=== PATIENT | female | born 1930 | race Caucasian/White ===

== ENCOUNTER 2017-06-02 11:43 | Inpatient (IN) | payer OTHER, BC ==
[~2017-06-02] VITALS: Ht 162.6 cm; Wt 60.7 kg
[~2017-06-02 11:43] MED LIST: 8 HOUR PAIN RE650 M1 PO; ACCUPRIL40 MG PO; ALPHAGAN P100 DROP/2 BOTH EYES; AMLODIPINE BESYL5 MG PO; ANTIVERT25 MG PO; APRESOLINE50 MG PO; ASPIRIN81 M1 PO; ASPIRIN81 M2 PO; Ativan PO; BRIMONIDINE TAR10 ML BOTH EYES; BRIMONIDINE TART5 ML BOTH EYES; CELEBREX200 MG PO; CIPROFLOXACIN500 M1 PO; CLOBETASOL PROP60 GM TP; CLOTRIM ANTIFUN15 GM TP; CORMAX50 M1 TP; COZAAR100 MG PO; Coumadin,Jantoven PO; FLAGYL500 MG PO; GABAPENTIN100 MG PO; HYDRALAZINE HCL50 MG PO; HYDROCHLOROTHIA25 MG PO; HYDRODIURIL,O12.5 M2 PO; Hydrodiuril,Oretic,E PO; LIDODERM 5% P1 PATCH TP; LO-DOSE ASPIRIN81 M1 PO; LO-DOSE ASPIRIN81 M2 PO; LORAZEPAM0.5 MG PO; LOSARTAN POTAS100 MG PO; LOSARTAN POTASS25 MG PO; LUMIGAN2.5 M1 OP; MECLIZINE HCL25 MG PO; METFORMIN HCL500 MG PO; METOPROLOL TAR100 MG PO; NEURONTIN100 MG PO; PAIN RELIEF650 MG PO; SENOKOT S,PE1 TABLET PO; SPIRONOLACTONE25 MG PO; SYNTHROID50 MCG PO; TIMOLOL MALEATE15 M1 BOTH EYES; TOPROL XL50 MG PO; TRAMADOL HCL50 MG PO; TYLENOL325 M1 PO; ULTRACET1 TABLET PO; ULTRAM50 MG PO; Vicodin,Norco 5/325 PO; XALATAN2.5 ML BOTH EYES; Xalatan 0.005% Ophth BOTH EYES
[2017-06-02 12:33] LABS: EOSINOPHIL (%) 0.1 % (0-5); HEMATOCRIT 31.4 % (36.0-46.0); IMMATURE GRANULOCYTE (%) 0.4 % (0.0-0.7); IMMATURE GRANULOCYTE COUNT 0.1 K/uL; INSTRUMENT ABS NEUTROPHIL CT 12.1 K/uL; LYMPHOCYTE COUNT 0.7 K/uL (1.0-2.8); MCH 27.2 PG (29.0-34.0); MCHC 32.5 G/DL (30.0-36.0); MCV 83.7 FL (83-99); MEAN PLAT.VOLUME 9.5 uM^3 (9.5-12.4); MONOCYTE (%) 6.4 % (3-12); MONOCYTE COUNT 0.9 K/uL (0-0.8); NEUTROPHIL COUNT 12.1 K/uL (1.8-6.4); PLATELET COUNT 249 K/uL (156-360); RBC DIS.WIDTH-CV 14.9 % (11.8-14.6); RBC DIS.WIDTH-SD 45.5 % (39-53); RED BLOOD COUNT 3.75 M/uL (3.80-5.20); WHITE BLOOD COUNT 13.7 K/uL (4.1-10.2)
[2017-06-02 12:41] LABS: CHLORIDE 94 mEq/L (99-109); POTASSIUM 5.1 mEq/L (3.7-5.4); SODIUM 124 mEq/L (136-147)
[2017-06-02 12:43] LABS: GLUCOSE 218 mg/dL (70-99)
[2017-06-02 12:44] LABS: ANION GAP 9 MEQ/L (2-14)
[2017-06-02 12:47] LABS: GFR ESTIMATE (CALCULATED) 30 mL/min/; UREA NITROGEN (BUN) 37 mg/dL (9-23)
[2017-06-02 12:54] LABS: TROP-I INTERPRETATION NEGATIVE; TROPONIN-I < 0.01 ng/mL (0.0-0.30)
[2017-06-02 15:01] VITALS: BP 137/65
[2017-06-02] MEDS ORDERED: ULTRAM50 MG PO (16:16)
[2017-06-02] MEDS ORDERED: MECLIZINE HCL25 MG PO (16:18)
[2017-06-02 19:00] VITALS: BP 145/73
[2017-06-03 00:44] VITALS: BP 146/69
[2017-06-03 05:08] VITALS: BP 143/67
[2017-06-03 06:03] LABS: HEMATOCRIT 26.6 % (36.0-46.0); MCH 27.2 PG (29.0-34.0); MCHC 32.7 G/DL (30.0-36.0); MCV 83.1 FL (83-99); MEAN PLAT.VOLUME 8.9 uM^3 (9.5-12.4); PLATELET COUNT 210 K/uL (156-360); RBC DIS.WIDTH-CV 14.8 % (11.8-14.6); RBC DIS.WIDTH-SD 45.2 % (39-53); WHITE BLOOD COUNT 8.8 K/uL (4.1-10.2)
[2017-06-03 06:27] LABS: ALKALINE PHOSPHATASE 40 IU/L (3-129); ANION GAP 5 MEQ/L (2-14); CHLORIDE 99 MEQ/L (99-109); GFR ESTIMATE (CALCULATED) 56 mL/min/; POTASSIUM 4.8 MEQ/L (3.7-5.4); SAMPLE HEMOLYSIS CHECK 1; SAMPLE ICTERIC CHECK 0; SAMPLE LIPEMIA CHECK 0; SODIUM 128 MEQ/L (136-147); TOTAL BILIRUBIN 0.7 MG/DL (0.0-1.0); UREA NITROGEN (BUN) 29 mg/dL (9-23)
[2017-06-03 06:38] LABS: GLUCOSE 87 mg/dL (70-99)
[2017-06-03 07:32] LABS: ADD MIUA? YES; BILIRUBIN NEGATIVE; BLOOD NEGATIVE; COLOR YELLOW ((YELLOW)); GLUCOSE (STRIP) NEGATIVE; KETONES NEGATIVE; LEUKOCYTES LARGE; NITRITE NEGATIVE; PROTEIN (STRIP) NEGATIVE; UROBILINOGEN 0.2 MG/DL (0.2-1.0)
[2017-06-03 07:55] LABS: BACTERIA RARE /HPF; EPITHELIAL CELLS 1+ /HPF; HYALINE CASTS 0-5 /LPF; MUCUS TRACE /LPF; UCUL ADDED? NO
[2017-06-03 09:21] VITALS: BP 174/74
[2017-06-03 11:58] VITALS: BP 152/69
[2017-06-03] MEDS ORDERED: ACETAMINOPHEN325 M3 PO (12:04)
[2017-06-03 12:33] LABS: POINT-OF-CARE METER ID UU14162513
[2017-06-03 16:37] VITALS: BP 180/80
[2017-06-03 17:40] LABS: POINT-OF-CARE METER ID UU13113831
[2017-06-03 19:40] VITALS: BP 180/76
[2017-06-03 22:26] LABS: POINT-OF-CARE METER ID UU13113831
[2017-06-03 22:31] LABS: POINT-OF-CARE METER ID UU14162513
[2017-06-04 00:22] VITALS: BP 181/87
[2017-06-04 04:38] VITALS: BP 165/81
[2017-06-04 05:45] LABS: EOSINOPHIL (%) 3.1 % (0-5); EOSINOPHIL COUNT 0.2 K/uL (0-0.3); IMMATURE GRANULOCYTE (%) 0.6 % (0.0-0.7); INSTRUMENT ABS NEUTROPHIL CT 4.2 K/uL; LYMPHOCYTE COUNT 1.1 K/uL (1.0-2.8); MCH 27.5 PG (29.0-34.0); MCHC 32.7 G/DL (30.0-36.0); MCV 84.1 FL (83-99); MEAN PLAT.VOLUME 9.5 uM^3 (9.5-12.4); MONOCYTE (%) 10.2 % (3-12); MONOCYTE COUNT 0.6 K/uL (0-0.8); NEUTROPHIL (%) 68.6 % (45-76); NEUTROPHIL COUNT 4.2 K/uL (1.8-6.4); PLATELET COUNT 215 K/uL (156-360); RBC DIS.WIDTH-CV 15.2 % (11.8-14.6); RBC DIS.WIDTH-SD 46.8 % (39-53); RED BLOOD COUNT 3.09 M/uL (3.80-5.20); WHITE BLOOD COUNT 6.2 K/uL (4.1-10.2)
[2017-06-04 06:08] LABS: ANION GAP 7 MEQ/L (2-14); CHLORIDE 104 MEQ/L (99-109); GFR ESTIMATE (CALCULATED) > 59 mL/min/; GLUCOSE 81 mg/dL (70-99); MAGNESIUM 1.5 mg/dl (1.3-2.7); POTASSIUM 4.3 MEQ/L (3.7-5.4); SAMPLE HEMOLYSIS CHECK 0; SAMPLE ICTERIC CHECK 0; SAMPLE LIPEMIA CHECK 0; SODIUM 133 MEQ/L (136-147); UREA NITROGEN (BUN) 21 mg/dL (9-23); URIC ACID 4.4 mg/dL (3.1-9.2)
[2017-06-04 08:05] LABS: POINT-OF-CARE METER ID UU14162513
[2017-06-04] MEDS ORDERED: APRESOLINE100 MG PO (12:06)
[2017-06-04] MEDS ORDERED: CATAPRES0.2 MG PO (12:09)
[2017-06-04] MEDS ORDERED: FUROSEMIDE20 MG PO (12:10)
[2017-06-04 12:23] VITALS: BP 187/72
== END 2017-06-04 14:35 | disposition home health service (06) | DRG 683 ==
LOC: EME 11:43 → 5WEST 13:39 → EDOF 13:39 → 5WEST 14:50
PROVIDERS: Emergency Medicine; Internal Medicine; Internal Medicine Nephrology
DX: N17.9 Acute kidney failure, unspecified (principal); E86.0 Dehydration; E87.1 Hypo-osmolality and hyponatremia; T46.4X5A Adverse effect of angiotensin-converting-enzyme inhibitors, initial encounter; T50.0X5A Adverse effect of mineralocorticoids and their antagonists, initial encounter; I16.0 Hypertensive urgency; I10 Essential (primary) hypertension; E11.9 Type 2 diabetes mellitus without complications; E03.9 Hypothyroidism, unspecified; F41.9 Anxiety disorder, unspecified; S20.219A Contusion of unspecified front wall of thorax, initial encounter; W19.XXXA Unspecified fall, initial encounter; Y92.009 Unspecified place in unspecified non-institutional (private) residence as the place of occurrence of the external cause; Z96.643 Presence of artificial hip joint, bilateral; Z85.828 Personal history of other malignant neoplasm of skin; Z79.82 Long term (current) use of aspirin
CPT/HCPCS: 70450; 71010; 76770; 80048; 80053; 81003; 82948; 83735; 83935; 84100; 84300; 84439; 84443; 84484; 84550; 85025; 85027; 93005; 99281; 99284; G0378; G8978 GP CI; G8979 GP CH; G8987 GO CI; G8988 GO CH; J1650; J7030

== ENCOUNTER 2017-09-19 15:29 | Emergency (ER) | payer OTHER, BC ==
[~2017-09-19] VITALS: Ht 167.6 cm; Wt 55.2 kg
[~2017-09-19 15:29] MED LIST changes: +ACETAMINOPHEN325 M3 PO; +APRESOLINE100 MG PO; +CATAPRES0.2 MG PO; +FUROSEMIDE20 MG PO
[2017-09-19 15:52] LABS: HEMATOCRIT 33.5 % (36.0-46.0); MCHC 32.8 G/DL (30.0-36.0); MCV 82.3 FL (83-99); PLATELET COUNT 289 K/uL (156-360); RBC DIS.WIDTH-CV 14.5 % (11.8-14.6); RBC DIS.WIDTH-SD 43.1 % (39-53); RED BLOOD COUNT 4.07 M/uL (3.80-5.20); WHITE BLOOD COUNT 8.3 K/uL (4.1-10.2)
[2017-09-19 16:03] LABS: CHLORIDE 92 mEq/L (99-109); POTASSIUM 4.6 mEq/L (3.7-5.4); SODIUM 127 mEq/L (136-147)
[2017-09-19 16:04] LABS: GLUCOSE 111 mg/dL (70-99)
[2017-09-19 16:06] LABS: ANION GAP 12 MEQ/L (2-14)
[2017-09-19 16:08] LABS: GFR ESTIMATE (CALCULATED) 50 mL/min/
[2017-09-19 16:09] LABS: UREA NITROGEN (BUN) 25 mg/dL (9-23)
[2017-09-19 17:31] LABS: PROTHROMBIN TIME 11.4 SEC (10.2-12.9)
[2017-09-19 17:44] LABS: TROP-I INTERPRETATION NEGATIVE; TROPONIN-I < 0.01 ng/mL (0.0-0.30)
[2017-09-19 17:48] LABS: ADD MIUA? NO; BILIRUBIN NEGATIVE; BLOOD NEGATIVE; COLOR STRAW ((YELLOW)); GLUCOSE (STRIP) NEGATIVE; KETONES NEGATIVE; LEUKOCYTES NEGATIVE; NITRITE NEGATIVE; PROTEIN (STRIP) 30; SPECIFIC GRAVITY 1.006 (1.000-1.030); UCUL ADDED? NO; UROBILINOGEN 0.2 MG/DL (0.2-1.0)
[2017-09-19 17:50] LABS: BASOPHIL COUNT 0.1 K/uL (0-0.1); EOSINOPHIL (%) 2.8 % (0-5); EOSINOPHIL COUNT 0.2 K/uL (0-0.3); IMMATURE GRANULOCYTE (%) 0.7 % (0.0-0.7); IMMATURE GRANULOCYTE COUNT 0.1 K/uL; INSTRUMENT ABS NEUTROPHIL CT 6.6 K/uL; LYMPHOCYTE COUNT 1.1 K/uL (1.0-2.8); MONOCYTE (%) 7.2 % (3-12); MONOCYTE COUNT 0.6 K/uL (0-0.8); NEUTROPHIL (%) 75.7 % (45-76); NEUTROPHIL COUNT 6.6 K/uL (1.8-6.4)
[2017-09-19 21:06] VITALS: BP 171/90
== END 2017-09-19 21:07 ==
LOC: EME 15:29
PROVIDERS: Emergency Medicine
DX: R42 Dizziness and giddiness (principal); I10 Essential (primary) hypertension; E11.9 Type 2 diabetes mellitus without complications; E03.9 Hypothyroidism, unspecified; Z85.828 Personal history of other malignant neoplasm of skin; Z90.49 Acquired absence of other specified parts of digestive tract; Z96.643 Presence of artificial hip joint, bilateral; Z79.82 Long term (current) use of aspirin
CPT/HCPCS: 70450; 71020; 80048; 81003; 83880; 84484; 85025; 85027; 85610; 85730; 93005; 99281; 99285; J7030

== ENCOUNTER 2017-10-12 15:41 | Emergency (ER) | payer OTHER, BC ==
[~2017-10-12] VITALS: Ht 160 cm; Wt 56.3 kg
[2017-10-12 17:31] LABS: EOSINOPHIL (%) 1.2 % (0-5); EOSINOPHIL COUNT 0.1 K/uL (0-0.3); HEMATOCRIT 33.2 % (36.0-46.0); IMMATURE GRANULOCYTE (%) 0.7 % (0.0-0.7); IMMATURE GRANULOCYTE COUNT 0.1 K/uL; INSTRUMENT ABS NEUTROPHIL CT 7.4 K/uL; MCH 27.6 PG (29.0-34.0); MCHC 33.1 G/DL (30.0-36.0); MCV 83.4 FL (83-99); MEAN PLAT.VOLUME 8.4 uM^3 (9.5-12.4); MONOCYTE (%) 5.2 % (3-12); MONOCYTE COUNT 0.5 K/uL (0-0.8); NEUTROPHIL (%) 81.6 % (45-76); NEUTROPHIL COUNT 7.4 K/uL (1.8-6.4); PLATELET COUNT 282 K/uL (156-360); RBC DIS.WIDTH-SD 45.6 % (39-53); RED BLOOD COUNT 3.98 M/uL (3.80-5.20)
[2017-10-12 17:40] LABS: CHLORIDE 92 mEq/L (99-109); POTASSIUM 4.9 mEq/L (3.7-5.4); SODIUM 128 mEq/L (136-147)
[2017-10-12 17:41] LABS: MAGNESIUM 1.6 mg/dL (1.3-2.7)
[2017-10-12 17:42] LABS: GLUCOSE 120 mg/dL (70-99)
[2017-10-12 17:43] LABS: ANION GAP 9 MEQ/L (2-14)
[2017-10-12 17:44] LABS: ADD MIUA? NO; BILIRUBIN NEGATIVE; BLOOD NEGATIVE; COLOR STRAW ((YELLOW)); GLUCOSE (STRIP) NEGATIVE; KETONES NEGATIVE; LEUKOCYTES NEGATIVE; NITRITE NEGATIVE; PROTEIN (STRIP) 30; SPECIFIC GRAVITY 1.006 (1.000-1.030); UCUL ADDED? NO; UROBILINOGEN 0.2 MG/DL (0.2-1.0)
[2017-10-12 17:46] LABS: GFR ESTIMATE (CALCULATED) 56 mL/min/
[2017-10-12 17:47] LABS: UREA NITROGEN (BUN) 19 mg/dL (9-23)
[2017-10-12 17:51] LABS: TROP-I INTERPRETATION NEGATIVE; TROPONIN-I < 0.01 ng/mL (0.0-0.30)
[2017-10-12 21:49] VITALS: BP 143/80
== END 2017-10-12 21:52 | disposition home or self-care (01) ==
LOC: EME 15:41
PROVIDERS: Emergency Medicine
DX: R42 Dizziness and giddiness (principal); I10 Essential (primary) hypertension; E11.9 Type 2 diabetes mellitus without complications; E03.9 Hypothyroidism, unspecified; Z85.828 Personal history of other malignant neoplasm of skin; Z96.643 Presence of artificial hip joint, bilateral; Z88.5 Allergy status to narcotic agent
CPT/HCPCS: 80048; 81003; 83735; 84484; 85025; 93005; 99281; 99285

== ENCOUNTER 2017-10-17 16:58 | Inpatient (IN) | payer OTHER, BC ==
[~2017-10-17] VITALS: Ht 165.1 cm; Wt 55.4 kg
[2017-10-17] MEDS ORDERED: METFORMIN HCL500 MG PO (17:35)
[2017-10-17] MEDS ORDERED: METOPROLOL TAR100 MG PO (17:36)
[2017-10-17] MEDS ORDERED: MECLIZINE HCL25 MG PO (17:37)
[2017-10-17] MEDS ORDERED: CLONIDINE HCL0.2 MG PO (17:37)
[2017-10-17] MEDS ORDERED: HYDRALAZINE HC100 MG PO (17:37)
[2017-10-17] MEDS ORDERED: SPIRONOLACTONE25 MG PO (17:38)
[2017-10-17] MEDS ORDERED: LEVOTHYROXINE50 MCG PO (17:39)
[2017-10-17] MEDS ORDERED: ASPIR 8181 M1 PO (17:39)
[2017-10-17] MEDS ORDERED: LORAZEPAM0.5 MG PO (17:40)
[2017-10-17] MEDS ORDERED: TRAMADOL HCL50 MG PO (17:41)
[2017-10-17] MEDS ORDERED: TIMOLOL MALEATE5 MG PO (17:43)
[2017-10-17] MEDS ORDERED: BRIMONIDINE TART5 ML BOTH EYES (17:44)
[2017-10-17] MEDS ORDERED: TIMOLOL MALEATE5 ML BOTH EYES (17:46)
[2017-10-17 18:35] LABS: EOSINOPHIL (%) 0.2 % (0-5); HEMATOCRIT 32.3 % (36.0-46.0); IMMATURE GRANULOCYTE (%) 0.6 % (0.0-0.7); IMMATURE GRANULOCYTE COUNT 0.1 K/uL; INSTRUMENT ABS NEUTROPHIL CT 7.4 K/uL; LYMPHOCYTE COUNT 1.1 K/uL (1.0-2.8); MCH 27.8 PG (29.0-34.0); MCHC 34.4 G/DL (30.0-36.0); MCV 80.8 FL (83-99); MEAN PLAT.VOLUME 8.9 uM^3 (9.5-12.4); MONOCYTE (%) 8.1 % (3-12); MONOCYTE COUNT 0.8 K/uL (0-0.8); NEUTROPHIL (%) 79.1 % (45-76); NEUTROPHIL COUNT 7.4 K/uL (1.8-6.4); PLATELET COUNT 313 K/uL (156-360); RBC DIS.WIDTH-CV 14.8 % (11.8-14.6); RBC DIS.WIDTH-SD 43.5 % (39-53); WHITE BLOOD COUNT 9.3 K/uL (4.1-10.2)
[2017-10-17 18:45] LABS: CHLORIDE 89 mEq/L (99-109); POTASSIUM 4.6 mEq/L (3.7-5.4)
[2017-10-17 18:47] LABS: GLUCOSE 117 mg/dL (70-99)
[2017-10-17 18:48] LABS: ANION GAP 10 MEQ/L (2-14)
[2017-10-17 18:51] LABS: GFR ESTIMATE (CALCULATED) > 59 mL/min/
[2017-10-17 18:52] LABS: SODIUM 121 mEq/L (136-147); UREA NITROGEN (BUN) 17 mg/dL (9-23)
[2017-10-17 18:57] LABS: TROP-I INTERPRETATION NEGATIVE; TROPONIN-I < 0.01 ng/mL (0.0-0.30)
[2017-10-17 19:50] LABS: ADD MIUA? YES; BILIRUBIN NEGATIVE; BLOOD NEGATIVE; COLOR STRAW ((YELLOW)); GLUCOSE (STRIP) NEGATIVE; KETONES NEGATIVE; LEUKOCYTES NEGATIVE; NITRITE NEGATIVE; PROTEIN (STRIP) 100; SPECIFIC GRAVITY 1.008 (1.000-1.030); UROBILINOGEN 0.2 MG/DL (0.2-1.0)
[2017-10-17 20:06] LABS: BACTERIA RARE /HPF; EPITHELIAL CELLS 1+ /HPF; MUCUS NONE SEEN /LPF; UCUL ADDED? NO; WHITE BLOOD CELLS 0-5 /HPF (0-5)
[2017-10-17] MEDS ORDERED: NEURONTIN100 MG PO (21:29)
[2017-10-17] MEDS ORDERED: GABAPENTIN100 MG PO (21:59)
[2017-10-17] MEDS ORDERED: SODIUM CHLORIDE1 G1 PO (22:01)
[2017-10-17] MEDS ORDERED: LATANOPROST2.5 ML BOTH EYES (22:01)
[2017-10-17] MEDS ORDERED: TIMOLOL MALEATE15 M1 BOTH EYES (22:02)
[2017-10-17] MEDS ORDERED: APRESOLINE50 MG PO (22:08)
[2017-10-18] VITALS (7 sets, daily range): BP systolic 145–178; BP diastolic 67–90
[2017-10-18 09:02] LABS: ANION GAP 11 MEQ/L (2-14); CHLORIDE 91 MEQ/L (99-109); GFR ESTIMATE (CALCULATED) > 59 mL/min/; GLUCOSE 112 mg/dL (70-99); POTASSIUM 5.2 MEQ/L (3.7-5.4); SAMPLE HEMOLYSIS CHECK 0; SAMPLE ICTERIC CHECK 0; SAMPLE LIPEMIA CHECK 0; SODIUM 124 MEQ/L (136-147); UREA NITROGEN (BUN) 16 mg/dL (9-23)
[2017-10-18 17:11] LABS: UR CREATININE CONCENTRATION 50.2 MG/DL
[2017-10-19 03:07] VITALS: BP 152/71
[2017-10-19 07:10] VITALS: BP 166/74
[2017-10-19 08:14] LABS: ANION GAP 10 MEQ/L (2-14); CHLORIDE 93 MEQ/L (99-109); GFR ESTIMATE (CALCULATED) 45 mL/min/; GLUCOSE 134 mg/dL (70-99); POTASSIUM 4.7 MEQ/L (3.7-5.4); SAMPLE HEMOLYSIS CHECK 0; SAMPLE ICTERIC CHECK 0; SAMPLE LIPEMIA CHECK 0; SODIUM 128 MEQ/L (136-147); UREA NITROGEN (BUN) 21 mg/dL (9-23); URIC ACID 6.1 mg/dL (3.1-9.2)
[2017-10-19 11:35] VITALS: BP 137/70
[2017-10-19 16:11] VITALS: BP 172/79
[2017-10-19 20:25] VITALS: BP 172/75
[2017-10-19 23:39] VITALS: BP 165/68
[2017-10-20 04:03] VITALS: BP 160/62
[2017-10-20 06:07] LABS: ANION GAP 9 MEQ/L (2-14); CHLORIDE 98 MEQ/L (99-109); GFR ESTIMATE (CALCULATED) 56 mL/min/; GLUCOSE 121 mg/dL (70-99); POTASSIUM 5.3 MEQ/L (3.7-5.4); SAMPLE HEMOLYSIS CHECK 1; SAMPLE ICTERIC CHECK 0; SAMPLE LIPEMIA CHECK 0; SODIUM 128 MEQ/L (136-147); UREA NITROGEN (BUN) 19 mg/dL (9-23)
[2017-10-20 07:35] VITALS: BP 130/61
[2017-10-20 11:17] VITALS: BP 167/74
[2017-10-20 16:12] VITALS: BP 162/72
[2017-10-21 00:39] VITALS: BP 147/71
[2017-10-21 07:20] VITALS: BP 150/70
[2017-10-21 07:35] LABS: ANION GAP 9 MEQ/L (2-14); CHLORIDE 100 MEQ/L (99-109); GFR ESTIMATE (CALCULATED) > 59 mL/min/; GLUCOSE 129 mg/dL (70-99); POTASSIUM 4.3 MEQ/L (3.7-5.4); SAMPLE HEMOLYSIS CHECK 0; SAMPLE ICTERIC CHECK 0; SAMPLE LIPEMIA CHECK 0; SODIUM 134 MEQ/L (136-147); UREA NITROGEN (BUN) 17 mg/dL (9-23)
[2017-10-21] MEDS ORDERED: APRESOLINE100 MG PO (07:49)
[2017-10-21] MEDS ORDERED: NIFEDIPINE ER30 MG PO (07:49)
[2017-10-21] MEDS ORDERED: SENNA LAX8.6 MG PO (07:49)
== END 2017-10-21 10:04 | disposition home health service (06) | DRG 305 ==
LOC: EME → EDBD 16:58 → EME 16:58 → EDOF 21:38 → 2EASTP 21:38 → CANRESERV 21:39 → ENRESERV 21:39 → CANRESERV 22:20 → ENRESERV 23:44 → 2EASTP 10-18 00:22
PROVIDERS: Emergency Medicine; Family Medicine; Internal Medicine; Internal Medicine Nephrology
DX: I16.0 Hypertensive urgency (principal); E87.1 Hypo-osmolality and hyponatremia; E87.5 Hyperkalemia; T50.0X5A Adverse effect of mineralocorticoids and their antagonists, initial encounter; I12.9 Hypertensive chronic kidney disease with stage 1 through stage 4 chronic kidney disease, or unspecified chronic kidney disease; E11.22 Type 2 diabetes mellitus with diabetic chronic kidney disease; N18.9 Chronic kidney disease, unspecified; D64.9 Anemia, unspecified; H91.90 Unspecified hearing loss, unspecified ear; E03.9 Hypothyroidism, unspecified; F41.9 Anxiety disorder, unspecified; Z96.643 Presence of artificial hip joint, bilateral; Z85.828 Personal history of other malignant neoplasm of skin
CPT/HCPCS: 70450; 76770; 80048; 80069; 81003; 82570; 83930; 83935; 84156; 84300; 84443; 84484; 84550; 85025; 93005; 93975; 97530 GO; 99281; 99285; J0360; J1650; J7030

== ENCOUNTER 2017-12-03 20:11 | Inpatient (IN) | payer OTHER, BC ==
[~2017-12-03] VITALS: Ht 162.6 cm; Wt 64.3 kg
[~2017-12-03 20:11] MED LIST changes: +ASPIR 8181 M1 PO; +CLONIDINE HCL0.2 MG PO; +HYDRALAZINE HC100 MG PO; +LATANOPROST2.5 ML BOTH EYES; +LEVOTHYROXINE50 MCG PO; +NIFEDIPINE ER30 MG PO; +SENNA LAX8.6 MG PO; +SODIUM CHLORIDE1 G1 PO; +TIMOLOL MALEATE5 MG PO; +TIMOLOL MALEATE5 ML BOTH EYES; +TIMOPTIC-0100 DROP/1 BOTH EYES
[2017-12-03 20:35] LABS: HEMATOCRIT 30.4 % (36.0-46.0); HEMOGLOBIN 10.3 G/DL (11.9-15.5); MCH 28.2 PG (29.0-34.0); MCHC 33.9 G/DL (30.0-36.0); MCV 83.3 FL (83-99); PLATELET COUNT 337 K/uL (156-360); RBC DIS.WIDTH-CV 14.6 % (11.8-14.6); RBC DIS.WIDTH-SD 44.2 % (39-53); RED BLOOD COUNT 3.65 M/uL (3.80-5.20); WHITE BLOOD COUNT 9.9 K/uL (4.1-10.2)
[2017-12-03 20:50] LABS: CHLORIDE 91 mEq/L (99-109); POTASSIUM 3.9 mEq/L (3.7-5.4); SODIUM 127 mEq/L (136-147)
[2017-12-03 20:51] LABS: GLUCOSE 149 mg/dL (70-99)
[2017-12-03 20:55] LABS: CREATININE 0.9 mg/dL (0.6-1.3); GFR ESTIMATE (CALCULATED) > 59 mL/min/
[2017-12-03 20:56] LABS: UREA NITROGEN (BUN) 17 mg/dL (9-23)
[2017-12-03 21:04] LABS: TROP-I INTERPRETATION NEGATIVE; TROPONIN-I 0.02 ng/mL (0.0-0.30)
[2017-12-03 23:12] VITALS: BP 164/78
[2017-12-04] VITALS (7 sets, daily range): BP systolic 108–158; BP diastolic 61–76
[2017-12-04 05:55] LABS: HEMATOCRIT 24.6 % (36.0-46.0); MCH 27.2 PG (29.0-34.0); MCHC 32.5 G/DL (30.0-36.0); MCV 83.7 FL (83-99); PLATELET COUNT 269 K/uL (156-360); RBC DIS.WIDTH-CV 14.7 % (11.8-14.6); RBC DIS.WIDTH-SD 45.1 % (39-53); RED BLOOD COUNT 2.94 M/uL (3.80-5.20); WHITE BLOOD COUNT 7.7 K/uL (4.1-10.2)
[2017-12-04 06:14] LABS: CHLORIDE 92 MEQ/L (99-109); CREATININE 0.8 MG/DL (0.6-1.3); GFR ESTIMATE (CALCULATED) > 59 mL/min/; POTASSIUM 3.4 MEQ/L (3.7-5.4); SODIUM 126 MEQ/L (136-147); UREA NITROGEN (BUN) 17 mg/dL (9-23)
[2017-12-04 06:15] LABS: GLUCOSE 88 mg/dL (70-99)
[2017-12-04 06:21] LABS: TROP-I INTERPRETATION NEGATIVE; TROPONIN-I < 0.01 ng/mL (0.0-0.30)
[2017-12-05 03:39] VITALS: BP 131/65
[2017-12-05 06:37] LABS: ABSOLUTE RETICULOCYTE CT. 0.1 M/uL (0.02-0.08); IMM.RETIC FRACTION 18.8 % (3-19); RETIC HGB EQUIVALENT 29.2 (28-36); RETICULOCYTE COUNT 2.6 % (0.5-1.8)
[2017-12-05 06:46] LABS: INTER. NORMALIZED RATIO 1.1
[2017-12-05 06:49] LABS: PTT 27.9 SEC (25-37)
[2017-12-05 07:09] LABS: CHLORIDE 92 MEQ/L (99-109); CREATININE 1.1 MG/DL (0.6-1.3); GFR ESTIMATE (CALCULATED) 50 mL/min/; GLUCOSE 86 mg/dL (70-99); IRON 30 MCG/DL (35-150); POTASSIUM 3.7 MEQ/L (3.7-5.4); SODIUM 130 MEQ/L (136-147); TRANSFERRIN (TIBC) 287.3 mg/dL (215-380); TRANSFERRIN SATUR. 10 % (20-55); UREA NITROGEN (BUN) 20 mg/dL (9-23)
[2017-12-05 08:05] LABS: FOLIC ACID (FOLATE) 13.4 NG/ML (5.0-22.0)
[2017-12-05 08:50] VITALS: BP 121/66
[2017-12-05 11:22] VITALS: BP 129/60
[2017-12-05 15:45] VITALS: BP 146/73
[2017-12-05 18:46] LABS: TYPE OF FLUID THORACENTESIS
[2017-12-05 19:19] LABS: APPEARANCE HAZY-YELLOW; BODY FLUID RBC'S 3000 /MM^3 (0-100); BODY FLUID WBC'S 676 /MM^3 (0-500)
[2017-12-05 19:46] VITALS: BP 156/72
[2017-12-05 19:51] LABS: BODY FLUID GLUCOSE 123 MG/DL; BODY FLUID LDH 34 IU/L; BODY FLUID PROTEIN < 3.0 G/DL
[2017-12-05 20:03] LABS: BODY FLUID EOSINOPHILS 0 % (0-25); MONONUCLEAR WBC'S 64 %; POLYNUCLEAR WBC'S 36 % (0-25)
[2017-12-05 21:23] LABS: LACTATE DEHYDROGENASE 114 IU/L (20-246); TOTAL PROTEIN 6.2 G/DL (6.4-8.3)
[2017-12-05 21:24] LABS: GLUCOSE 135 mg/dL (70-99)
[2017-12-05 23:00] VITALS: BP 161/75
[2017-12-06 03:41] VITALS: BP 127/58
[2017-12-06 07:00] VITALS: BP 124/58
[2017-12-06 07:17] LABS: BASOPHIL (%) 0.1 % (0-1); EOSINOPHIL (%) 0 % (0-5); HEMOGLOBIN 8.6 G/DL (11.9-15.5); IMMATURE GRANULOCYTE (%) 1.2 % (0.0-0.7); LYMPHOCYTE (%) 7.2 % (15-42); LYMPHOCYTE COUNT 0.6 K/uL (1.0-2.8); MCH 27.7 PG (29.0-34.0); MCHC 33.1 G/DL (30.0-36.0); MCV 83.6 FL (83-99); MONOCYTE (%) 3.2 % (3-12); MONOCYTE COUNT 0.3 K/uL (0-0.8); NEUTROPHIL (%) 88.3 % (45-76); NEUTROPHIL COUNT 7.4 K/uL (1.8-6.4); PLATELET COUNT 275 K/uL (156-360); RBC DIS.WIDTH-CV 14.6 % (11.8-14.6); RBC DIS.WIDTH-SD 44.8 % (39-53); RED BLOOD COUNT 3.11 M/uL (3.80-5.20); WHITE BLOOD COUNT 8.4 K/uL (4.1-10.2)
[2017-12-06 07:41] LABS: CHLORIDE 90 MEQ/L (99-109); CREATININE 0.9 MG/DL (0.6-1.3); GFR ESTIMATE (CALCULATED) > 59 mL/min/; GLUCOSE 145 mg/dL (70-99); POTASSIUM 3.2 MEQ/L (3.7-5.4); SODIUM 131 MEQ/L (136-147); UREA NITROGEN (BUN) 22 mg/dL (9-23)
[2017-12-06 12:23] VITALS: BP 120/51
[2017-12-06 16:09] VITALS: BP 127/63
[2017-12-06 20:51] VITALS: BP 145/72
[2017-12-07 00:02] VITALS: BP 136/65
[2017-12-07 07:34] LABS: BASOPHIL (%) 0.2 % (0-1); EOSINOPHIL (%) 0 % (0-5); HEMATOCRIT 27.7 % (36.0-46.0); HEMOGLOBIN 9.1 G/DL (11.9-15.5); IMMATURE GRANULOCYTE (%) 1.4 % (0.0-0.7); LYMPHOCYTE (%) 9.2 % (15-42); MCH 28.2 PG (29.0-34.0); MCHC 32.9 G/DL (30.0-36.0); MCV 85.8 FL (83-99); MONOCYTE COUNT 0.9 K/uL (0-0.8); NEUTROPHIL (%) 81.2 % (45-76); NEUTROPHIL COUNT 8.9 K/uL (1.8-6.4); PLATELET COUNT 322 K/uL (156-360); RBC DIS.WIDTH-CV 14.8 % (11.8-14.6); RBC DIS.WIDTH-SD 46.3 % (39-53); RED BLOOD COUNT 3.23 M/uL (3.80-5.20)
[2017-12-07 08:17] LABS: CHLORIDE 91 MEQ/L (99-109); CREATININE 1.1 MG/DL (0.6-1.3); GFR ESTIMATE (CALCULATED) 50 mL/min/; SODIUM 133 MEQ/L (136-147); UREA NITROGEN (BUN) 30 mg/dL (9-23)
[2017-12-07 08:21] LABS: GLUCOSE 103 mg/dL (70-99); POTASSIUM 3.9 MEQ/L (3.7-5.4)
[2017-12-07 08:42] VITALS: BP 120/61
[2017-12-07 15:00] VITALS: BP 122/66
[2017-12-07 19:38] VITALS: BP 142/68
[2017-12-08 00:01] VITALS: BP 125/64
[2017-12-08 03:26] VITALS: BP 112/54
[2017-12-08 07:09] LABS: BASOPHIL (%) 0.1 % (0-1); EOSINOPHIL (%) 0 % (0-5); HEMATOCRIT 27.2 % (36.0-46.0); HEMOGLOBIN 8.9 G/DL (11.9-15.5); IMMATURE GRANULOCYTE (%) 1.3 % (0.0-0.7); LYMPHOCYTE (%) 9.3 % (15-42); LYMPHOCYTE COUNT 0.9 K/uL (1.0-2.8); MCH 28.1 PG (29.0-34.0); MCHC 32.7 G/DL (30.0-36.0); MCV 85.8 FL (83-99); MONOCYTE (%) 7.8 % (3-12); MONOCYTE COUNT 0.8 K/uL (0-0.8); NEUTROPHIL (%) 81.5 % (45-76); NEUTROPHIL COUNT 7.9 K/uL (1.8-6.4); PLATELET COUNT 313 K/uL (156-360); RBC DIS.WIDTH-CV 14.9 % (11.8-14.6); RBC DIS.WIDTH-SD 46.6 % (39-53); RED BLOOD COUNT 3.17 M/uL (3.80-5.20); WHITE BLOOD COUNT 9.7 K/uL (4.1-10.2)
[2017-12-08 07:31] LABS: CHLORIDE 94 MEQ/L (99-109); GFR ESTIMATE (CALCULATED) 56 mL/min/; GLUCOSE 105 mg/dL (70-99); SODIUM 135 MEQ/L (136-147); UREA NITROGEN (BUN) 37 mg/dL (9-23)
[2017-12-08 07:45] VITALS: BP 128/64
[2017-12-08 11:05] VITALS: BP 157/73
[2017-12-08 15:43] VITALS: BP 136/64
[2017-12-08 20:06] VITALS: BP 162/78
[2017-12-09 00:20] VITALS: BP 139/66
[2017-12-09 03:17] VITALS: BP 123/59
[2017-12-09 07:30] VITALS: BP 126/62
[2017-12-09 09:50] LABS: CHLORIDE 96 MEQ/L (99-109); CREATININE 1.1 MG/DL (0.6-1.3); GFR ESTIMATE (CALCULATED) 50 mL/min/; GLUCOSE 95 mg/dL (70-99); POTASSIUM 4.3 MEQ/L (3.7-5.4); SODIUM 138 MEQ/L (136-147); UREA NITROGEN (BUN) 39 mg/dL (9-23)
[2017-12-09 11:59] VITALS: BP 120/57
[2017-12-09] MEDS ORDERED: AMOX TR-K CLV1 EAC4 PO (12:38)
[2017-12-09] MEDS ORDERED: DUONEB 2.5-0.5 M3 ML AEROSOL (12:38)
[2017-12-09] MEDS ORDERED: ALBUTEROL2.5 MG/0.5 AEROSOL (12:38)
[2017-12-09] MEDS ORDERED: FUROSEMIDE40 MG PO (12:39)
[2017-12-09] MEDS ORDERED: FAMOTIDINE20 MG PO (12:39)
[2017-12-09] MEDS ORDERED: PREDNISONE20 MG PO (12:40)
[2017-12-09] MEDS ORDERED: CYANOCOBAL1000 MCG/2 IM (12:41)
[2017-12-09] MEDS ORDERED: TRAMADOL HCL50 MG PO (12:42)
[2017-12-09] MEDS ORDERED: LORAZEPAM0.5 MG PO (12:42)
== END 2017-12-09 15:11 | DRG 291 ==
LOC: EME → EDBD 20:11 → EME 20:11 → EDOF 21:19 → 2EAST 21:19 → ENRESERV 21:24 → EDOF 21:58 → ENRESERV 22:06 → 2EAST 23:04
PROVIDERS: Family Medicine; Hospitalist; Internal Medicine Cardiovascular Disease; Internal Medicine Pulmonary Disease
PROC: 0W9B3ZZ Drainage of Left Pleural Cavity, Percutaneous Approach (ICD-10-PCS; principal; 2017-12-05)
DX: I50.32 Chronic diastolic (congestive) heart failure (principal); J18.9 Pneumonia, unspecified organism; I16.0 Hypertensive urgency; E87.1 Hypo-osmolality and hyponatremia; I27.20 Pulmonary hypertension, unspecified; I11.0 Hypertensive heart disease with heart failure; R53.1 Weakness; D63.8 Anemia in other chronic diseases classified elsewhere; E11.9 Type 2 diabetes mellitus without complications; E53.8 Deficiency of other specified B group vitamins; E03.9 Hypothyroidism, unspecified; F41.9 Anxiety disorder, unspecified; H91.90 Unspecified hearing loss, unspecified ear; M19.90 Unspecified osteoarthritis, unspecified site; Z96.643 Presence of artificial hip joint, bilateral; Z83.3 Family history of diabetes mellitus; Z85.828 Personal history of other malignant neoplasm of skin; Z82.49 Family history of ischemic heart disease and other diseases of the circulatory system
CPT/HCPCS: 36415; 71045; 71046; 76942; 80048; 82272; 82607; 82746; 82945; 82947 91; 83540; 83615; 83615 91; 83880; 84155; 84157; 84466; 84484; 85025; 85027; 85046; 85610; 85730; 87040; 87070; 87075; 87116; 87205; 87206; 87502; 88108; 88305; 89051; 93005; 93306; 94640; 94640 76; 94799; 97530 GO; 99202; 99281; 99285; J0456; J0696; J1940; J3420; J7512; J7644

== ENCOUNTER 2018-01-18 10:02 | Inpatient (IN) | payer OTHER, BC ==
[~2018-01-18] VITALS: Ht 157.5 cm; Wt 67.6 kg
[~2018-01-18 10:02] MED LIST changes: +ALBUTEROL2.5 MG/0.5 AEROSOL; +AMOX TR-K CLV1 EAC4 PO; +CYANOCOBAL1000 MCG/2 IM; +DUONEB 2.5-0.5 M3 ML AEROSOL; +FAMOTIDINE20 MG PO; +FUROSEMIDE40 MG PO; +PREDNISONE20 MG PO
[2018-01-18 10:39] LABS: HEMATOCRIT 30.1 % (36.0-46.0); MCH 27.6 PG (29.0-34.0); MCHC 33.2 G/DL (30.0-36.0); PLATELET COUNT 326 K/uL (156-360); RBC DIS.WIDTH-CV 14.9 % (11.8-14.6); RBC DIS.WIDTH-SD 45.4 % (39-53); RED BLOOD COUNT 3.62 M/uL (3.80-5.20); WHITE BLOOD COUNT 16.4 K/uL (4.1-10.2)
[2018-01-18 10:40] LABS: MCV 83.1 FL (83-99)
[2018-01-18 10:54] LABS: TROP-I INTERPRETATION NEGATIVE; TROPONIN-I < 0.01 ng/mL (0.0-0.30)
[2018-01-18 11:12] LABS: CHLORIDE 91 MEQ/L (99-109); POTASSIUM 4.2 MEQ/L (3.7-5.4); SODIUM 124 MEQ/L (136-147)
[2018-01-18 11:17] LABS: CREATININE 0.7 MG/DL (0.6-1.3); GFR ESTIMATE (CALCULATED) > 59 mL/min/; GLUCOSE 154 mg/dL (70-99); UREA NITROGEN (BUN) 14 mg/dL (9-23)
[2018-01-18] MEDS ORDERED: CATAPRES0.2 MG PO (12:55)
[2018-01-18] MEDS ORDERED: PEPCID20 MG PO (13:03)
[2018-01-18 19:03] LABS: CHLORIDE 90 MEQ/L (99-109); CREATININE 0.7 MG/DL (0.6-1.3); GFR ESTIMATE (CALCULATED) > 59 mL/min/; GLUCOSE 126 mg/dL (70-99); POTASSIUM 3.8 MEQ/L (3.7-5.4); SODIUM 125 MEQ/L (136-147); UREA NITROGEN (BUN) 15 mg/dL (9-23)
[2018-01-18 19:39] LABS: URIC ACID 6.1 mg/dL (3.1-9.2)
[2018-01-18 20:28] VITALS: BP 170/80
[2018-01-18 23:15] VITALS: BP 94/54
[2018-01-19] VITALS (8 sets, daily range): BP systolic 82–107; BP diastolic 45–61
[2018-01-19 06:10] LABS: BASOPHIL (%) 0.1 % (0-1); EOSINOPHIL (%) 0.1 % (0-5); HEMATOCRIT 23.2 % (36.0-46.0); IMMATURE GRANULOCYTE (%) 0.8 % (0.0-0.7); LYMPHOCYTE (%) 6.1 % (15-42); LYMPHOCYTE COUNT 0.6 K/uL (1.0-2.8); MCHC 33.2 G/DL (30.0-36.0); MCV 84.4 FL (83-99); MONOCYTE (%) 7.5 % (3-12); MONOCYTE COUNT 0.8 K/uL (0-0.8); NEUTROPHIL (%) 85.4 % (45-76); NEUTROPHIL COUNT 8.9 K/uL (1.8-6.4); RBC DIS.WIDTH-CV 15.2 % (11.8-14.6); RBC DIS.WIDTH-SD 46.5 % (39-53); WHITE BLOOD COUNT 10.4 K/uL (4.1-10.2)
[2018-01-19 06:11] LABS: HEMOGLOBIN 7.7 G/DL (11.9-15.5); RED BLOOD COUNT 2.75 M/uL (3.80-5.20)
[2018-01-19 06:27] LABS: CHLORIDE 93 MEQ/L (99-109); GFR ESTIMATE (CALCULATED) 56 mL/min/; GLUCOSE 95 mg/dL (70-99); POTASSIUM 3.5 MEQ/L (3.7-5.4); SODIUM 125 MEQ/L (136-147); UREA NITROGEN (BUN) 18 mg/dL (9-23)
[2018-01-19 07:00] LABS: PLAT.SUFFICIENCY ADEQUATE
[2018-01-19 07:10] LABS: PLATELET COUNT 219 K/uL (156-360)
[2018-01-19 12:46] LABS: HEMATOCRIT 23.7 % (36.0-46.0); HEMOGLOBIN 7.7 G/DL (11.9-15.5); MCV 85.6 FL (83-99)
[2018-01-19 13:24] LABS: STOOL OCCULT BLD 1ST SPECIMEN NEGATIVE
[2018-01-19 19:19] LABS: ALBUMIN 2.8 G/DL (3.2-4.8)
[2018-01-20] VITALS (10 sets, daily range): BP systolic 95–140; BP diastolic 50–66
[2018-01-20 07:00] LABS: CHLORIDE 91 MEQ/L (99-109); CREATININE 1.2 MG/DL (0.6-1.3); GFR ESTIMATE (CALCULATED) 45 mL/min/; GLUCOSE 91 mg/dL (70-99); POTASSIUM 3.6 MEQ/L (3.7-5.4); SODIUM 126 MEQ/L (136-147); UREA NITROGEN (BUN) 23 mg/dL (9-23)
[2018-01-20 07:01] LABS: BASOPHIL (%) 0.1 % (0-1); EOSINOPHIL (%) 0.3 % (0-5); IMMATURE GRANULOCYTE (%) 2.1 % (0.0-0.7); LYMPHOCYTE (%) 8.4 % (15-42); LYMPHOCYTE COUNT 0.8 K/uL (1.0-2.8); MCH 27.5 PG (29.0-34.0); MCHC 32.5 G/DL (30.0-36.0); MCV 84.7 FL (83-99); MONOCYTE (%) 8.1 % (3-12); MONOCYTE COUNT 0.8 K/uL (0-0.8); NEUTROPHIL COUNT 7.5 K/uL (1.8-6.4); PLATELET COUNT 210 K/uL (156-360); RBC DIS.WIDTH-CV 14.6 % (11.8-14.6); RBC DIS.WIDTH-SD 45.1 % (39-53); WHITE BLOOD COUNT 9.2 K/uL (4.1-10.2)
[2018-01-20 07:05] LABS: HEMOGLOBIN 10.4 G/DL (11.9-15.5); RED BLOOD COUNT 3.78 M/uL (3.80-5.20)
[2018-01-20 08:36] LABS: PTT 29.9 SEC (25-37)
[2018-01-21] VITALS (7 sets, daily range): BP systolic 99–133; BP diastolic 51–66
[2018-01-21 05:43] LABS: BASOPHIL (%) 0.4 % (0-1); EOSINOPHIL (%) 0.8 % (0-5); EOSINOPHIL COUNT 0.1 K/uL (0-0.3); HEMATOCRIT 30.9 % (36.0-46.0); HEMOGLOBIN 10.1 G/DL (11.9-15.5); IMMATURE GRANULOCYTE (%) 0.6 % (0.0-0.7); LYMPHOCYTE (%) 7.1 % (15-42); LYMPHOCYTE COUNT 0.6 K/uL (1.0-2.8); MCH 27.7 PG (29.0-34.0); MCHC 32.7 G/DL (30.0-36.0); MCV 84.7 FL (83-99); MONOCYTE (%) 8.3 % (3-12); MONOCYTE COUNT 0.7 K/uL (0-0.8); NEUTROPHIL (%) 82.8 % (45-76); NEUTROPHIL COUNT 6.9 K/uL (1.8-6.4); PLATELET COUNT 194 K/uL (156-360); RBC DIS.WIDTH-CV 14.7 % (11.8-14.6); RBC DIS.WIDTH-SD 45.4 % (39-53); RED BLOOD COUNT 3.65 M/uL (3.80-5.20); WHITE BLOOD COUNT 8.4 K/uL (4.1-10.2)
[2018-01-21 06:05] LABS: CHLORIDE 94 MEQ/L (99-109); CREATININE 1.2 MG/DL (0.6-1.3); GFR ESTIMATE (CALCULATED) 45 mL/min/; GLUCOSE 90 mg/dL (70-99); POTASSIUM 3.7 MEQ/L (3.7-5.4); SODIUM 129 MEQ/L (136-147); UREA NITROGEN (BUN) 24 mg/dL (9-23)
[2018-01-22 03:54] VITALS: BP 129/63
[2018-01-22 06:31] LABS: HEMATOCRIT 31.1 % (36.0-46.0); MCH 27.5 PG (29.0-34.0); MCHC 32.2 G/DL (30.0-36.0); MCV 85.7 FL (83-99); PLATELET COUNT 202 K/uL (156-360); RBC DIS.WIDTH-CV 14.7 % (11.8-14.6); RBC DIS.WIDTH-SD 46.5 % (39-53); RED BLOOD COUNT 3.63 M/uL (3.80-5.20); WHITE BLOOD COUNT 8.3 K/uL (4.1-10.2)
[2018-01-22 07:00] VITALS: BP 145/64
[2018-01-22 07:07] LABS: CHLORIDE 93 MEQ/L (99-109); GFR ESTIMATE (CALCULATED) 56 mL/min/; GLUCOSE 82 mg/dL (70-99); POTASSIUM 3.6 MEQ/L (3.7-5.4); UREA NITROGEN (BUN) 20 mg/dL (9-23)
[2018-01-22 07:09] LABS: SODIUM 137 MEQ/L (136-147)
[2018-01-22 11:14] VITALS: BP 118/59
[2018-01-22] MEDS ORDERED: ALBUTEROL2.5 MG/0.5 AEROSOL (12:55)
[2018-01-22] MEDS ORDERED: LABETALOL HCL200 MG PO (12:56)
[2018-01-22] MEDS ORDERED: LOVENOX30 MG/0.3 SC (12:56)
[2018-01-22] MEDS ORDERED: TRAMADOL HCL50 MG PO (12:57)
[2018-01-22] MEDS ORDERED: LORAZEPAM0.5 MG PO (12:57)
[2018-01-22] MEDS ORDERED: KLOR-CON M1010 MEQ PO (12:57)
[2018-01-22] MEDS ORDERED: LASIX40 MG PO (12:58)
[2018-01-22] MEDS ORDERED: LEVAQUIN750 MG PO (13:05)
== END 2018-01-22 16:32 | DRG 291 ==
LOC: EME 10:02 → 5EAST 12:06 → EDOF 12:06 → ENRESERV 12:20 → 5EAST 19:58
PROVIDERS: Emergency Medicine; Family Medicine; Internal Medicine Gastroenterology; Internal Medicine Nephrology; Radiology Diagnostic Radiology
PROC: 30233N1 Transfusion of Nonautologous Red Blood Cells into Peripheral Vein, Percutaneous Approach (ICD-10-PCS; 2018-01-19)
PROC: 0W9B3ZZ Drainage of Left Pleural Cavity, Percutaneous Approach (ICD-10-PCS; principal; 2018-01-20)
DX: I11.0 Hypertensive heart disease with heart failure (principal); I50.33 Acute on chronic diastolic (congestive) heart failure; J90 Pleural effusion, not elsewhere classified; J18.9 Pneumonia, unspecified organism; J96.01 Acute respiratory failure with hypoxia; E87.1 Hypo-osmolality and hyponatremia; E87.5 Hyperkalemia; E03.9 Hypothyroidism, unspecified; E11.9 Type 2 diabetes mellitus without complications; E88.09 Other disorders of plasma-protein metabolism, not elsewhere classified; F41.9 Anxiety disorder, unspecified; H91.90 Unspecified hearing loss, unspecified ear; I08.3 Combined rheumatic disorders of mitral, aortic and tricuspid valves; I27.20 Pulmonary hypertension, unspecified; I42.9 Cardiomyopathy, unspecified; D64.9 Anemia, unspecified; K86.2 Cyst of pancreas; Z66 Do not resuscitate; Z96.643 Presence of artificial hip joint, bilateral; Z85.828 Personal history of other malignant neoplasm of skin; Z79.82 Long term (current) use of aspirin
CPT/HCPCS: 71045; 71046; 71250; 74176; 76942; 80048; 80048 91; 82040; 82272; 83010 90; 83615; 83880; 83935; 84300; 84484; 84550; 85014; 85018; 85025; 85027; 85610; 85730; 86850; 86900; 86901; 86920; 93005; 94799; 97530 GP; 99202; 99281; 99285; J0456; J0696; J1650; J1940; J2405; P9016

== ENCOUNTER 2018-01-29 09:05 | Inpatient (IN) | payer OTHER, BC ==
[~2018-01-29] VITALS: Ht 157.5 cm; Wt 60.3 kg
[~2018-01-29 09:05] MED LIST changes: +KLOR-CON M1010 MEQ PO; +LABETALOL HCL200 MG PO; +LASIX40 MG PO; +LEVAQUIN750 MG PO; +LOVENOX30 MG/0.3 SC; +PEPCID20 MG PO
[2018-01-29 10:01] LABS: MCH 28.4 PG (29.0-34.0); MCHC 32.4 G/DL (30.0-36.0); MCV 87.9 FL (83-99); PLATELET COUNT 223 K/uL (156-360); RBC DIS.WIDTH-CV 15.4 % (11.8-14.6); RBC DIS.WIDTH-SD 49.6 % (39-53); RED BLOOD COUNT 3.87 M/uL (3.80-5.20); WHITE BLOOD COUNT 7.3 K/uL (4.1-10.2)
[2018-01-29 10:12] LABS: CHLORIDE 94 mEq/L (99-109); POTASSIUM 4.5 mEq/L (3.7-5.4); SODIUM 135 mEq/L (136-147)
[2018-01-29 10:16] LABS: GLUCOSE 88 mg/dL (70-99)
[2018-01-29 10:18] LABS: CREATININE 0.9 mg/dL (0.6-1.3); GFR ESTIMATE (CALCULATED) > 59 mL/min/
[2018-01-29 10:20] LABS: UREA NITROGEN (BUN) 15 mg/dL (9-23)
[2018-01-29 10:23] LABS: TROP-I INTERPRETATION NEGATIVE; TROPONIN-I < 0.01 ng/mL (0.0-0.30)
[2018-01-29 14:05] VITALS: BP 179/84
[2018-01-29 15:09] LABS: TROP-I INTERPRETATION NEGATIVE; TROPONIN-I < 0.01 ng/mL (0.0-0.30)
[2018-01-29 18:32] VITALS: BP 134/64
[2018-01-29 19:30] VITALS: BP 151/67
[2018-01-29 20:07] LABS: TROP-I INTERPRETATION NEGATIVE; TROPONIN-I < 0.01 ng/mL (0.0-0.30)
[2018-01-30 00:21] VITALS: BP 108/55
[2018-01-30 02:35] LABS: TROP-I INTERPRETATION NEGATIVE; TROPONIN-I < 0.01 ng/mL (0.0-0.30)
[2018-01-30 03:42] VITALS: BP 123/56
[2018-01-30 08:47] LABS: BASOPHIL (%) 0.6 % (0-1); EOSINOPHIL (%) 2.2 % (0-5); EOSINOPHIL COUNT 0.1 K/uL (0-0.3); IMMATURE GRANULOCYTE (%) 0.5 % (0.0-0.7); LYMPHOCYTE COUNT 0.6 K/uL (1.0-2.8); MCH 28.5 PG (29.0-34.0); MCHC 32.3 G/DL (30.0-36.0); MCV 88.3 FL (83-99); MONOCYTE COUNT 0.6 K/uL (0-0.8); NEUTROPHIL (%) 77.7 % (45-76); PLATELET COUNT 210 K/uL (156-360); RBC DIS.WIDTH-CV 15.7 % (11.8-14.6); RBC DIS.WIDTH-SD 51.1 % (39-53); RED BLOOD COUNT 3.51 M/uL (3.80-5.20); WHITE BLOOD COUNT 6.4 K/uL (4.1-10.2)
[2018-01-30 09:28] LABS: CHLORIDE 95 MEQ/L (99-109); CREATININE 0.8 MG/DL (0.6-1.3); GFR ESTIMATE (CALCULATED) > 59 mL/min/; GLUCOSE 72 mg/dL (70-99); POTASSIUM 3.6 MEQ/L (3.7-5.4); SODIUM 137 MEQ/L (136-147); UREA NITROGEN (BUN) 13 mg/dL (9-23)
[2018-01-30] MEDS ORDERED: LOVENOX30 MG/0.3 SC (12:39)
[2018-01-30] MEDS ORDERED: LASIX40 MG PO (12:40)
[2018-01-30] MEDS ORDERED: K-DUR10 MEQ PO (12:43)
[2018-01-30 12:48] VITALS: BP 103/53
[2018-01-30] MEDS ORDERED: DULCOLAX10 MG PR (12:51)
[2018-01-30] MEDS ORDERED: MILK OF MAGN PO (12:52)
[2018-01-30] MEDS ORDERED: MIRALAX17 GM PO (12:53)
[2018-01-30] MEDS ORDERED: ULTRAM50 MG PO (12:55)
[2018-01-30] MEDS ORDERED: TUMS500 MG PO (12:56)
[2018-01-30 16:41] VITALS: BP 129/60
[2018-01-30 19:00] VITALS: BP 109/58
[2018-01-30 23:23] VITALS: BP 105/56
[2018-01-31 03:28] VITALS: BP 134/63
[2018-01-31 06:01] LABS: CHLORIDE 96 MEQ/L (99-109); CREATININE 0.9 MG/DL (0.6-1.3); GFR ESTIMATE (CALCULATED) > 59 mL/min/; GLUCOSE 81 mg/dL (70-99); POTASSIUM 3.9 MEQ/L (3.7-5.4); SODIUM 138 MEQ/L (136-147); UREA NITROGEN (BUN) 14 mg/dL (9-23)
[2018-01-31 08:04] VITALS: BP 134/65
[2018-01-31 10:17] LABS: TYPE OF FLUID PLEURAL
[2018-01-31 10:30] LABS: APPEARANCE SL. HAZY-YELLOW; BODY FLUID RBC'S 1000 /MM^3 (0-100); BODY FLUID WBC'S 406 /MM^3 (0-500)
[2018-01-31 10:58] LABS: BODY FLUID EOSINOPHILS 0 % (0-25); MONONUCLEAR WBC'S 54 %; POLYNUCLEAR WBC'S 46 % (0-25)
[2018-01-31 11:37] LABS: BODY FLUID GLUCOSE 92 MG/DL; BODY FLUID LDH 40 IU/L; BODY FLUID PROTEIN < 3.0 G/DL
[2018-01-31 12:18] VITALS: BP 116/58
[2018-01-31 17:05] VITALS: BP 173/79
[2018-01-31 20:21] VITALS: BP 132/63
[2018-01-31 23:37] VITALS: BP 104/52
[2018-02-01 04:01] VITALS: BP 118/56
[2018-02-01 05:32] LABS: BASOPHIL (%) 0.4 % (0-1); EOSINOPHIL (%) 0.7 % (0-5); HEMATOCRIT 29.4 % (36.0-46.0); HEMOGLOBIN 9.4 G/DL (11.9-15.5); IMMATURE GRANULOCYTE (%) 0.6 % (0.0-0.7); LYMPHOCYTE (%) 5.6 % (15-42); LYMPHOCYTE COUNT 0.3 K/uL (1.0-2.8); MCH 28.1 PG (29.0-34.0); MCV 87.8 FL (83-99); MONOCYTE (%) 4.9 % (3-12); MONOCYTE COUNT 0.3 K/uL (0-0.8); NEUTROPHIL (%) 87.8 % (45-76); NEUTROPHIL COUNT 4.7 K/uL (1.8-6.4); PLATELET COUNT 195 K/uL (156-360); RBC DIS.WIDTH-CV 15.9 % (11.8-14.6); RBC DIS.WIDTH-SD 50.6 % (39-53); RED BLOOD COUNT 3.35 M/uL (3.80-5.20); WHITE BLOOD COUNT 5.4 K/uL (4.1-10.2)
[2018-02-01 05:59] LABS: CHLORIDE 96 MEQ/L (99-109); GFR ESTIMATE (CALCULATED) 56 mL/min/; GLUCOSE 77 mg/dL (70-99); SODIUM 136 MEQ/L (136-147); UREA NITROGEN (BUN) 15 mg/dL (9-23)
[2018-02-01 08:12] VITALS: BP 108/53
[2018-02-01 12:22] VITALS: BP 132/63
[2018-02-01 15:35] VITALS: BP 105/53
[2018-02-01] MEDS ORDERED: TRAMADOL HCL50 MG PO (17:13)
[2018-02-01] MEDS ORDERED: LORAZEPAM0.5 MG PO (17:13)
== END 2018-02-01 18:42 | DRG 292 ==
LOC: EME 09:05 → EDOF 11:20 → ENRESERV 11:54 → EDOF 11:56 → ENRESERV 12:48 → 5WEST 13:50
PROVIDERS: Family Medicine; Internal Medicine Pulmonary Disease; Nurse Practitioner Family
PROC: 0W9B3ZZ Drainage of Left Pleural Cavity, Percutaneous Approach (ICD-10-PCS; principal; 2018-01-31)
DX: I11.0 Hypertensive heart disease with heart failure (principal); E03.9 Hypothyroidism, unspecified; H91.90 Unspecified hearing loss, unspecified ear; J91.8 Pleural effusion in other conditions classified elsewhere; I27.29 Other secondary pulmonary hypertension; I50.9 Heart failure, unspecified; F41.9 Anxiety disorder, unspecified; M19.90 Unspecified osteoarthritis, unspecified site; E11.9 Type 2 diabetes mellitus without complications; I08.3 Combined rheumatic disorders of mitral, aortic and tricuspid valves; I27.20 Pulmonary hypertension, unspecified; J90 Pleural effusion, not elsewhere classified; E87.1 Hypo-osmolality and hyponatremia; K21.9 Gastro-esophageal reflux disease without esophagitis; R13.10 Dysphagia, unspecified; D64.9 Anemia, unspecified; K22.4 Dyskinesia of esophagus; Z66 Do not resuscitate; Z51.5 Encounter for palliative care; Z85.828 Personal history of other malignant neoplasm of skin; Z83.3 Family history of diabetes mellitus; Z96.643 Presence of artificial hip joint, bilateral; Z88.5 Allergy status to narcotic agent; Z87.01 Personal history of pneumonia (recurrent); Z79.82 Long term (current) use of aspirin; Z88.8 Allergy status to other drugs, medicaments and biological substances; Z82.49 Family history of ischemic heart disease and other diseases of the circulatory system; R09.02 Hypoxemia
CPT/HCPCS: 71046; 74220; 76942; 80048; 80048 91; 82945; 83615 91; 83880; 84157; 84484; 85025; 85027; 87040; 87070; 87077; 87205; 87801; 88108; 88305; 89051; 93005; 94799; 99202; 99281; 99285; A6214; C9113; G0378; J1650; J1940; J2543; J7050